=== PATIENT | female | born 1945 | race Caucasian/White ===

== ENCOUNTER 2018-04-13 10:10 | Outpatient (CLI) | payer MEDICARE ==
--- NOTE | 2018-04-16 10:45 | Mammography Report ---
Reason: ANNUAL SCREENING Procedure Date: 04/13/2018 Accession Number: [id number] / [id number] Procedure: CARLY - Screening Mammo w/Reed CPT Code: FULL RESULT: EXAM: Screening Mammo w/Reed DATE: 04/13/2018 11:54 AM CLINICAL HISTORY: 72-year-old female with history of breast reduction surgery presents for screening. TECHNIQUE: Bilateral CC and MLO views were obtained. COMPARISON: 04/15/2016, 04/24/2014, 07/17/2012, 02/15/2011. FINDINGS: The breasts demonstrate diffuse fatty replacement bilaterally. There are typically benign calcifications bilaterally, coarse No suspicious masses, clustered microcalcifications, or regions of architectural distortion are identified. IMPRESSION: Benign findings RECOMMENDATION: Routine annual screening unless otherwise clinically indicated. BIRADS CATEGORY 2: Benign findings STANDARD QUALIFYING STATEMENTS: 1. This examination was not reviewed with the aid of Computer-Aided Detection (CAD). 2. A negative or benign imaging report should not delay biopsy if clinically suspicious findings are present. Consider surgical consultation if warranted. More than 5% of cancers are not identified by imaging. 3. Dense breasts may obscure an underlying neoplasm. 4. This examination was reviewed with the aid of 3D breast imaging (tomosynthesis).
== END 2018-04-13 10:11 | disposition home or self-care (01) ==
LOC: DI 10:10
PROVIDERS: ATTEND Physician Assistant
DX: Z12.31 Encounter for screening mammogram for malignant neoplasm of breast (principal)
CPT/HCPCS: 77063; 77067

== ENCOUNTER 2018-05-10 13:41 | Outpatient (CLI) | payer MEDICARE ==
--- NOTE | 2018-05-11 08:38 | DEXA Report ---
Reason: AGE RELATED OSTEOPOROSIS WITHOUT CURRENT PATHOLOGI Procedure Date: 05/10/2018 Accession Number: [id number] / [id number] Procedure: DEX - Dexa Spine and/or Hip CPT Code: FULL RESULT: EXAM: Dexa Spine and/or Hip DATE: 05/10/2018 2:46 PM CLINICAL HISTORY: AGE RELATED OSTEOPOROSIS WITHOUT CURRENT PATHOLOGY TECHNIQUE: Dual energy x-ray absorptiometry (DXA) was performed on a [employer] System. Regions measured are the AP Spine, femoral neck, and if needed forearm. COMPARISON: 04/15/2016 In accordance with the International Society for Clinical Densitometry (ISCD) guidelines, data from previous exams may be reanalyzed using current recommendations and techniques. This is done to allow a more accurate basis for comparison with the current study. FINDINGS: The data for the lumbar spine is as follows: BMD (g/cm/cm) T-SCORE Z-SCORE REGION L1 0.943 -1.6 0.1 L2 0.794 -3.4 -1.7 L3 0.831 -3.1 -1.4 L4 0.907 -2.4 -0.7 TOTAL 0.869 -2.6 -0.9 NOTE: All evaluable vertebrae are used for classification The data for the hip is as follows: BMD (g/cm/cm) T-SCORE Z-SCORE REGION Neck 0.773 -1.9 0.0 TOTAL 0.776 -1.8 -0.2 NOTE: The femoral neck or total proximal femur, whichever is lowest, is used for classification. DXA RESULTS SUMMARY: Spine SCAN DATE AGE BMD CHANGE VS CHANGE VS PREVIOUS PREVIOUS % [birth year]10[birth year]2018 [age] 0[age]869 0.010 1.2 04/15/2016 [age] 0[age]859 * Denotes significant change at the 95% confidence level. Denotes dissimilar scan types or analysis methods. DXA RESULTS SUMMARY: Hip SCAN DATE AGE BMD CHANGE VS CHANGE VS PREVIOUS PREVIOUS % [birth year]10[birth year]2018 [age] 0.776 -0.025 -3.1 04/15/2016 [age] 0.801 * Denotes significant change at the 95% confidence level. Denotes dissimilar scan types or analysis methods. IMPRESSION: THE WHO CLASSIFICATION BASED ON THE INTERNATIONAL REFERENCE STANDARD IS OSTEOPOROSIS. THE FRACTURE RISK IS HIGH. RECOMMENDATION: Patients with diagnosis of osteoporosis or osteopenia should have regular bone mineral density assessment. For those eligible for Medicare, routine testing is allowed once every 2 years. Testing frequency can be increased for patients who have rapidly progressing disease or for those who are receiving medical therapy to restore bone mass. COMMENT: World Health Organization (WHO) definitions for osteoporosis and osteopenia: NORMAL BMD: T-score at -1.0 or higher, fracture risk is low OSTEOPENIA BMD: T-score between -1.0 and -2.5, fracture risk is increased. OSTEOPOROSIS BMD: T-score at -2.5 or lower, fracture risk is high. National Osteoporosis Foundation recommends: 1. Obtain adequate dietary calcium (at least 1200 mg per day) and vitamin D (400-800 international units per day). 2. Participate, as appropriate, in regular weightbearing and muscle-strengthening exercise. 3. Avoid tobacco use and reduce alcohol and caffeine intake. 4. For more detailed information see the website at www.NOF.org.
== END 2018-05-10 13:42 | disposition home or self-care (01) ==
LOC: DI 13:41
PROVIDERS: ATTEND Physician Assistant
DX: M81.0 Age-related osteoporosis without current pathological fracture (principal)
CPT/HCPCS: 77080

== ENCOUNTER 2019-05-30 14:15 | Outpatient (CLI) | payer MEDICARE, BC ==
--- NOTE | 2019-05-31 05:47 | XRAY Report ---
Reason: Respiratory tract infection Procedure Date: 05/30/2019 Accession Number: [id number] / [id number] Procedure: XRS - Chest 2 View X-Ray CPT Code: 78184 Final Report FULL RESULT: EXAM: CHEST RADIOGRAPHY EXAM DATE: 05/30/2019 02:31 PM. CLINICAL HISTORY: Respiratory tract infection. COMPARISON: None. TECHNIQUE: 2 views. FINDINGS: Lungs/Pleura: No focal opacities evident. No pleural effusion. No pneumothorax. Normal volumes. Mediastinum: Normal heart size. Tortuous thoracic aorta. Other: None. IMPRESSION: No acute process seen in the chest. RADIA
== END 2019-05-30 14:16 | disposition home or self-care (01) ==
LOC: DI.S 14:15
PROVIDERS: ATTEND Registered Nurse
DX: J98.8 Other specified respiratory disorders (principal)
CPT/HCPCS: 71046

== ENCOUNTER 2019-12-06 07:42 | Outpatient (CLI) | payer MEDICARE, BC | END 2019-12-06 07:43 | disposition home or self-care (01) | LOC: LAB.S 07:42 | PROVIDERS: ATTEND Physician Assistant | DX: Z53.9 Procedure and treatment not carried out, unspecified reason (principal) | CPT/HCPCS: 36415; 80053; 83036; 84443 ==

== ENCOUNTER 2020-11-17 09:42 | Outpatient (CLI) | payer MEDICARE, BC ==
[2020-11-17 15:21] LABS: ALBUMIN 4.2 g/dL (3.2-5.5); ALBUMIN/GLOBULIN RATIO 1.3 (1.0-2.2); CALCIUM 9.4 mg/dL (8.5-10.3); CREATININE 0.6 mg/dL (0.4-1.0); POTASSIUM 3.3 mmol/L (3.5-5.0); TOTAL PROTEIN 7.5 g/dL (6.7-8.2)
[2020-11-17 15:26] LABS: BASOPHILS # (AUTO) 0.1 10^3/uL (0.0-0.1); BASOPHILS % (AUTO) 0.8 %; EOSINOPHILS # (AUTO) 0.2 10^3/uL (0.0-0.7); EOSINOPHILS % (AUTO) 2.9 %; HCT - HEMATOCRIT 42.8 % (37.0-47.0); HGB - HEMOGLOBIN 14.8 g/dL (12.0-16.0); LYMPHOCYTES # (AUTO) 2.8 10^3/uL (1.5-3.5); LYMPHOCYTES % (AUTO) 39.7 %; MEAN CORPUSCULAR HEMOGLOBIN 30.3 pg (27.0-31.0); MEAN CORPUSCULAR HGB CONC 34.6 g/dL (32.0-36.0); MEAN CORPUSCULAR VOLUME 87.5 fL (81.0-99.0); MONOCYTES # (AUTO) 0.6 10^3/uL (0.0-1.0); MONOCYTES % (AUTO) 8.1 %; NEUTROPHILS # (AUTO) 3.4 10^3/uL (1.5-6.6); NEUTROPHILS % (AUTO) 48.4 %; PLT - PLATELET COUNT 293 10^3/uL (130-450); RED BLOOD COUNT 4.89 10^6/uL (4.20-5.40); RED CELL DISTRIBUTION WIDTH 12.1 % (12.0-15.0); WHITE BLOOD COUNT 7.1 x10^3/uL (4.8-10.8)
== END 2020-11-17 09:43 | disposition home or self-care (01) ==
LOC: LAB.S 09:42
PROVIDERS: ATTEND Nurse Practitioner Family
DX: R10.9 Unspecified abdominal pain (principal)
CPT/HCPCS: 36415; 80053; 82150; 83690; 85025

== ENCOUNTER 2020-11-19 07:59 | Outpatient (CLI) | payer MEDICARE, BC ==
[2020-11-19] MEDS ORDERED: IOPAMIDOL-300 50 ML VIAL ONE (08:03)
[2020-11-19] MEDS ORDERED: IOVERSOL 320 100 ML VIAL IVP ONE ×2 (08:04→09:14)
[2020-11-19] MEDS ORDERED: IOPAMIDOL-300 50 ML VIAL PO ONE (09:14)
--- NOTE | 2020-11-19 13:56 | CT Report ---
PROCEDURE: Abdomen/Pelvis W INDICATIONS: ABD PAIN CONTRAST: IV CONTRAST: Optiray 320 ml: 100 PO CONTRAST: Isovue 300 ml50 TECHNIQUE: After the administration of intravenous and oral contrast, 5 mm thick sections acquired from the diap hragms to the symphysis. 5 mm thick coronal and sagittal reformats were acquired. For radiation dos e reduction, the following was used: automated exposure control, adjustment of mA and/or kV accordin g to patient size. COMPARISON: None. FINDINGS: Image quality: Excellent. ABDOMEN: Lung bases: There is mild atelectasis or scarring in the lung bases. Heart size is borderline enlarge d. Solid organs: There is diffuse hypoattenuation of the liver consistent with fatty infiltration. A sma ll cyst is demonstrated anteriorly in the left hepatic lobe. Gallbladder appears within normal limits without calcified gallstones. Biliary system is non dilated. The spleen is normal in size. Pancreas enhances normally without peripancreatic fat stranding or fluid collections. No adrenal nodules. K idneys demonstrate no hydronephrosis. There is a cystic lesion within the anterolateral aspect of the right kidney at the level of the interpolar region, measuring approximately 3.3 x 2.0 x 1.8 cm with eccentric wall thickening laterally. There is associated focal cortical thinning of the adjacent righ t kidney. Peritoneum and bowel: Small bowel loops demonstrate normal wall thickness and caliber. No pericecal inflammatory changes to suggest appendicitis. There is colonic diverticulosis without acute diverticu litis. Mild segmental wall thickening in the sigmoid colon may reflect a mild colitis or artifact fro m incomplete distention. No free fluid or air. Nodes and vessels: No retroperitoneal or mesenteric adenopathy by size criteria. Aorta and inferior vena cava are normal in size. Miscellaneous: No ventral hernias. PELVIS: Genitourinary: Bladder wall thickness is normal. Miscellaneous: No inguinal hernias or adenopathy. Bones: No suspicious bony lesions. No vertebral body compression fractures. IMPRESSION: 1. Mild segmental wall thickening in the sigmoid colon may reflect a mild colitis or artifact due to incomplete distention. Recommend correlation clinically. 2. Cystic lesion along the right kidney with eccentric wall thickening and adjacent focal renal corti tom thinning. The finding is nonspecific and the differential includes a complex cyst, a hematoma or seroma related to prior renal trauma, or a cystic neoplasm. Recommend initial further evaluation with a targeted ultrasound. 3. Hepatic steatosis. Reviewed by: Ad Gallegos MD on 11/19/2020 1:54 PM PDT Approved by: Ad Gallegos MD on 11/19/2020 1:54 PM PDT Station ID: [id number]
== END 2020-11-19 08:00 | disposition home or self-care (01) ==
LOC: DI 07:59
PROVIDERS: ATTEND Nurse Practitioner Family
DX: R10.9 Unspecified abdominal pain (principal); K76.0 Fatty (change of) liver, not elsewhere classified; N28.1 Cyst of kidney, acquired
CPT/HCPCS: 74177; Q9967

== ENCOUNTER 2020-11-24 16:37 | Outpatient (CLI) | payer MEDICARE, BC ==
--- NOTE | 2020-11-25 10:35 | Ultrasound Report ---
PROCEDURE: Retroperitoneal Limited INDICATIONS: RT KIDNEY CYST TECHNIQUE: Real-time scanning was performed of the retroperitoneal organs, with image documentation. COMPARISON: CT scanning of abdomen 11/19/2020. This had identified an abnormal structure at the latera l cortex of the right mid kidney, extending to about the renal sinus fat.. FINDINGS: Limited study targeted to the right kidney, at clinician request. Kidneys: Kidneys are normal in size. Right kidney measures 11.3 cm craniocaudad and has a renal cor tical thickness of 1.3 cm. At the mid cortex of the right kidney there is a masslike lesion measuring up to 3.0 x 2.9 x 1.9 cm. Internal vascularity is present, the appearance is not that of a simple or proteinaceous cyst. IMPRESSION: Limited single organ ultrasound documenting a complex structure at the right mid kidney that appears solid, with elevated vascularity along its margins with the renal cortex. This structure does not rep resent a complex cyst or proteinaceous cyst. Follow-up high-resolution renal neoplasm protocol CT scanning without and with contrast is dena whyte Reviewed by: Iván Soria MD on 11/25/2020 10:34 AM PDT Approved by: Iván Soria MD on 11/25/2020 10:34 AM PDT Station ID: [id number]
== END 2020-11-24 16:38 | disposition home or self-care (01) ==
LOC: DI 16:37
PROVIDERS: ATTEND Nurse Practitioner Family
DX: N28.89 Other specified disorders of kidney and ureter (principal)

== ENCOUNTER 2020-12-03 12:54 | Outpatient (CLI) | payer MEDICARE, BC ==
[2020-12-03] MEDS ORDERED: IOVERSOL 320 100 ML VIAL IVP ONE ×2 (13:55→16:43)
--- NOTE | 2020-12-04 13:36 | CT Report ---
PROCEDURE: ABDOMEN W/WO INDICATIONS: RENAL PROTOCAL - RENAL MASS CONTRAST: IV CONTRAST: Optiray 320 ml: 140 PO CONTRAST: *NO PO CONTRAST TECHNIQUE: After the administration of intravenous contrast, 5 mm thick sections acquired from the diaphragm to the symphysis. 5 mm coronal and sagittal reformats were acquired. For radiation dose reduction, the following was used: automated exposure control, adjustment of mA and/or kV according to patient siz e. COMPARISON: CT abdomen pelvis 11/19/2020, intracranial ultrasound 11/24/2020. FINDINGS: Image quality: Excellent. Lung bases: There is mild dependent atelectasis in the lung bases. Heart size is normal. Genitourinary: There is an oval exophytic mass lesion along the lateral aspect of the superior pole of the right kidney measuring approximately 3.3 x 1.3 cm in transverse dimension by 2.1 cm in cranial caudal dimension. This demonstrates heterogeneous internal density on noncontrast images. Following contrast administration, there are eccentric internal enhancing components. There are also hypoattenu ating relatively nonenhancing components which may reflect necrosis. The mass abuts the posterior rig ht hepatic lobe without definite invasion into the hepatic parenchyma identified. No evidence of martínez l vein invasion. No additional definite renal mass identified. There is a small left renal cyst and a few additional punctate foci within the kidneys which are too small to characterize but likely repre sent cysts. Mild cortical thinning is redemonstrated anteriorly within the superior pole the right ki dney. There is no hydronephrosis. The visualized ureters are nondistended. Solid organs: Evaluation of the liver demonstrates no focal hepatic lesions. Gallbladder appears wit hin normal limits without calcified gallstones. Biliary system is non dilated. The spleen is normal in size. Pancreas enhances normally without peripancreatic fat stranding or fluid collections. No ad renal nodules. Peritoneum and bowel: Visualized bowel loops are normal in caliber and wall thickness. No free fluid or air. Nodes and vessels: No retroperitoneal or mesenteric adenopathy by size criteria. Aorta and inferior vena cava are normal in caliber. Bones: No suspicious bony lesions. No vertebral body compression fractures. Miscellaneous: No ventral hernias. IMPRESSION: 1. Exophytic heterogeneous right renal mass demonstrates internal enhancing components. The findings likely represent a renal cell carcinoma and urologic consultation is recommended. 2. The mass abuts the posterior right hepatic lobe without definite internal hepatic invasion identif ied on CT. No evidence of renal vein invasion. 3. No lymphadenopathy within the abdomen by size criteria. Reviewed by: Ad Gallegos MD on 12/04/2020 1:35 PM PDT Approved by: Ad Gallegos MD on 12/04/2020 1:35 PM PDT Station ID: [id number]
== END 2020-12-03 12:55 | disposition home or self-care (01) ==
LOC: DI 12:54
PROVIDERS: ATTEND Nurse Practitioner Family
DX: N28.89 Other specified disorders of kidney and ureter (principal)
CPT/HCPCS: 74170; Q9967

== ENCOUNTER 2021-07-07 12:41 | Outpatient (CLI) | payer MEDICARE, BC ==
--- NOTE | 2021-07-07 13:15 | DEXA Report ---
PROCEDURE: Dexa Spine and/or Hip INDICATIONS: OSTEOPOROSIS TECHNIQUE: Dual energy x-ray absorptiometry (DXA) was performed on a [employer] System. Regions measur ed are the AP Spine, femoral neck, and if needed forearm. COMPARISON: May 10, 2018. FINDINGS: Lumbar Spine: Bone Mineral Density 1.004 g/cm/cm,T score -1.5, osteopenia Left Femoral Neck: Bone Mineral Density 0.703 g/cm/cm, T score -2.4, osteopenia. Total: Bone Mineral Density 0.772 g/cm/cm, T score -1.9, osteopenia. (T score greater or equal to -1.0: NORMAL) (T score from -1.1 to -2.4: OSTEOPENIA) (T score less than or equal to -2.5 to: OSTEOPOROSIS) Impression: Bone mineral density as detailed above. Patients with diagnosis of osteoporosis or osteopenia should have regular bone mineral density assess ment. For those eligible for Medicare, routine testing is allowed once every 2 years. Testing frequ ency can be increased for patients who have rapidly progressing disease or for those who are receivin g medical therapy to restore bone mass. Reviewed by: Bubba Pate MD on 07/07/2021 1:14 PM PST Approved by: Bubba Pate MD on 07/07/2021 1:14 PM PST Station ID: [id number]
== END 2021-07-07 12:42 | disposition home or self-care (01) ==
LOC: DI 12:41
PROVIDERS: ATTEND Nurse Practitioner Family
DX: M85.89 Other specified disorders of bone density and structure, multiple sites (principal)

== ENCOUNTER 2021-07-13 13:57 | Outpatient (CLI) | payer MEDICARE, BC ==
--- NOTE | 2021-07-14 07:03 | Mammography Report ---
BILATERAL DIGITAL SCREENING MAMMOGRAM 3D/2D: 07/13/2021 CLINICAL: Routine screening. Comparison is made to exams dated: 04/13/2018 mammogram, 04/15/2016 mammogram, 04/24/2014 mammogram, and 07/17/2012 mammogram - [facility]. The tissue of both breasts is predominantly fatty. No significant masses, calcifications, or other findings are seen in either breast. There has been no significant interval change. IMPRESSION: NEGATIVE There is no mammographic evidence of malignancy. A 1 year screening mammogram is recommended. This exam was interpreted at Station ID: [id number]. NOTE: For mammograms, a report in lay terms will be sent to the patient. Approximately 15% of breast malignancies will not be visualized mammographically. In the management of a palpable breast mass, a negative mammogram must not discourage biopsy of a clinically suspicious lesion. Electronically Signed By: Morgan Scott acr/penrad:07/13/2021 16:28:41 ACR BI-RADS Category 1: Negative 3341F PARENCHYMAL PATTERN: (F) - The breast(s) demonstrate(s) diffuse fatty replacement. BI-RADS CATEGORY: (1) - 1 RECOMMENDATION: (ANNUAL) - Recommend routine annual screening mammography. [id number] 1 year screening LATERALITY: (B)
== END 2021-07-13 13:58 | disposition home or self-care (01) ==
LOC: DI.S 13:57
PROVIDERS: ATTEND Nurse Practitioner Family
DX: Z12.31 Encounter for screening mammogram for malignant neoplasm of breast (principal)

== ENCOUNTER 2023-05-31 13:02 | Outpatient (CLI) | payer MEDICARE, BC ==
--- NOTE | 2023-06-02 11:36 | Mammography Report ---
BILATERAL DIGITAL SCREENING MAMMOGRAM 3D/2D: 05/31/2023 CLINICAL: Routine screening. Comparison is made to exams dated: 07/13/2021 mammogram, 04/13/2018 mammogram, and 04/15/2016 mammogr am - [facility]. Both breasts are almost entirely fatty (category a/<25% glandular tissue). No significant masses, calcifications, or other findings are seen in either breast. There has been no significant interval change. IMPRESSION: NEGATIVE There is no mammographic evidence of malignancy. A 1 year screening mammogram is recommended. Based on the Tyrer Cuzick model (a risk assessment model) the patients lifetime risk is 1.3% and her 10 year risk is 0.0%. According to the ACR, ACS, and NCCN guidelines, an annual breast MRI exam ezequiel g with mammogram is recommended if the patients lifetime risk is 20% or greater. This exam was interpreted at Station ID: [id number]. NOTE: For mammograms, a report in lay terms will be sent to the patient. Approximately 15% of breast malignancies will not be visualized mammographically. In the management of a palpable breast mass, a negative mammogram must not discourage biopsy of a clinically suspicious lesion. Electronically Signed By: Bernard suh/shiva:06/01/2023 09:47:36 letter sent: No_Letter ACR BI-RADS Category 1: Negative 3341F PARENCHYMAL PATTERN: (F) - The breast(s) demonstrate(s) diffuse fatty replacement. BI-RADS CATEGORY: (1) - 1 Mammogram [id number] 1 year screening LATERALITY: (B)
== END 2023-05-31 13:03 | disposition home or self-care (01) ==
LOC: DI.S 13:02
PROVIDERS: ATTEND Family Medicine
DX: Z12.31 Encounter for screening mammogram for malignant neoplasm of breast (principal)

== ENCOUNTER 2023-06-09 09:45 | Outpatient (CLI) | payer MEDICARE, BC ==
--- NOTE | 2023-06-09 11:13 | DEXA Report ---
PROCEDURE: Dexa Spine and/or Hip INDICATIONS: OSTEOPENIA TECHNIQUE: Dual energy x-ray absorptiometry (DXA) was performed on a [employer] System. Regions measur ed are the AP Spine, femoral neck, and if needed forearm. COMPARISON: 07/07/2021 FINDINGS: Lumbar Spine: Bone Mineral Density 0.958 g/cm/cm,T score -1.8. Since the most recent prior study, there has been a statistically significant decrease in bone mineral density by 4.6 percent. Left Femoral Neck: Bone Mineral Density 0.762 g/cm/cm, T score -2.0. Left Hip: Bone Mineral Density 0.753 g/cm/cm,T score -2.0. There has been no statistically significant change i n bone mineral density since the prior study. (T score greater or equal to -1.0: NORMAL) (T score from -1.1 to -2.4: OSTEOPENIA) (T score less than or equal to -2.5 to: OSTEOPOROSIS) Impression: By WHO criteria, this patient has low bone density (osteopenia). Interval statistical decrease in bone minteral density of the lumbar spine. No statistical interval c hange in bone minteral density of the hip. Patients with diagnosis of osteoporosis or osteopenia should have regular bone mineral density assess ment. For those eligible for Medicare, routine testing is allowed once every 2 years. Testing frequ ency can be increased for patients who have rapidly progressing disease or for those who are receivin g medical therapy to restore bone mass. Reviewed by: John Silvestre MD on 06/09/2023 11:11 AM PST Approved by: John Silvestre MD on 06/09/2023 11:11 AM PST Station ID: [id number]
== END 2023-06-09 09:46 | disposition home or self-care (01) ==
LOC: DI 09:45
PROVIDERS: ATTEND Family Medicine
DX: M85.89 Other specified disorders of bone density and structure, multiple sites (principal)